=== PATIENT | male | born 1990 | race Caucasian/White ===

== ENCOUNTER → 2024-12-21 15:08 | Outpatient (CLI) | payer OTHER, SELFPAY ==
--- NOTE | 2024-12-21 15:11 | DI.RAD.S_ITS ---
PROCEDURE: [place] ARTHROGRAM KNEE LT INDICATIONS: ANTEROLATERAL SNAPPING-AUDIBLE AND PALPABLE COMPARISON: None. TECHNIQUE: The indications, alternatives, benefits, risks, and complications of the procedure were explained to the patient. Written informed consent was obtained and placed in the chart. The knee was examined fluoroscopically, and a site chosen for knee joint injection. The skin was prepped and draped in a sterile fashion, and 1% Lidocaine infiltrated from the skin down to the articular surface. A hypodermic needle was then introduced into the joint and iodinated contrast media was instilled to confirm the intra-articular needle tip placement. This was followed by approximately 40 mL dilute solution of a gadolinium containing MR contrast agent. The needle was removed and a bandage was applied. An John wrap was then applied around the knee joint to keep the contrast from collecting in the suprapatellar recess. The patient experienced no complications throughout the procedure and left the fluoroscopic suite in no apparent distress. FINDINGS: Single fluoroscopic spot image demonstrates intra-articular location to injected iodinated contrast. IMPRESSION: Successful fluoroscopically guided administration of dilute Gadolinium solution into the knee joint for MR arthrogram. Approved by: Vinny Rose M.D. on 12/21/2024 at 16:50
--- NOTE | 2024-12-21 15:12 | DI.MRI.S_ITS ---
PROCEDURE: MR KNEE LT W CON INDICATIONS: ANTEROLATERAL SNAPPING-AUDIBLE AND PALPABLE. LEFT KNEE PAIN TECHNIQUE: After the administration of 50 mL of dilute intra-articular Gadolinium contrast, sagittal T1 spin echo with fat saturation and PD fast spin echo with fat saturation, coronal T1 spin echo with and without fat saturation, coronal T2 fast spin echo with fat saturation, axial PD fast spin echo with fat saturation through the knee. COMPARISON: [facility], , [place] ARTHROGRAM KNEE LT, 12/21/2024, 14:29. FINDINGS: Image quality: Excellent. Menisci: Complex oblique tear involving body and posterior horn of medial meniscus is seen extending to both superior and inferior articulating surfaces with contrast extension. Peripheral displacement of medial meniscus bowing medial collateral ligament is also noted. No evidence of lateral meniscal tear. Cruciate ligaments: The anterior cruciate ligament is mildly thickened. The PCL is intact. Medial structures: The medial collateral ligament appears intact. Visualized portions of the pes anserinus tendons appear normal. No abnormal bursal fluid. Lateral structures: The lateral collateral ligament, long and short heads of the biceps femoris tendon appear intact. The popliteus tendon appears normal. Iliotibial band appears normal. Anterior structures: The quadriceps and patellar tendons appear intact. Patellar alignment is normal. No femoral trochlear dysplasia or ventral trochlear prominence. No edema in the infrapatellar fat pad. Bone and cartilage: No bone marrow contusions or fractures. 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 Low-grade chondromalacia involving lateral facet of patella cartilage is also seen. Chondromalacia in medial femoral tibial compartment is also noted. Or Joint space: There is a Sheffield's cyst measures 3 x 1.8 x 4.3 cm in size. Normal appearing synovial plicae are incidentally noted. No intra-articular bodies. IMPRESSION: 1. Suggestion of complex oblique tear involving body and posterior horn of medial meniscus extending to both superior and inferior articulating surfaces. No lateral meniscal tear. 2. Low-grade ACL sprain. No ACL rupture. The PCL is intact. 3. 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 Low-grade chondromalacia in medial femoral tibial compartment and lateral facet of patella cartilage. No fracture or dislocation. 4. Sheffield's cyst as above. No intra-articular loose bodies. Dictated by: Myke Waters M.D. on 12/22/2024 at 10:01 Approved by: Myke Waters M.D. on 12/22/2024 at 10:54
== END ==
DX: S83.242A Other tear of medial meniscus, current injury, left knee, initial encounter (principal); S83.512A Sprain of anterior cruciate ligament of left knee, initial encounter; M23.8X2 Other internal derangements of left knee; M22.42 Chondromalacia patellae, left knee; M71.22 Synovial cyst of popliteal space [Baker], left knee
CPT/HCPCS: 27369; 73580; 73722; A9579; Q9967